=== PATIENT | male | born 1960 | race Two or more races ===

== ENCOUNTER 2016-06-10 07:13 | Emergency (ER) | payer OTHER ==
[2016-06-10] MEDS ORDERED: predniSONE TAB* 20 MG PO ONE (07:33)
--- NOTE | 2016-06-10 08:09 | RAD ---
INDICATION: Right facial paralysis COMPARISON: None TECHNIQUE: Noncontrast axial source images were acquired from the skull base to the vertex. FINDINGS: Ventricles/sulci: The ventricles and cisterns are normal in size and configuration for age. Brain parenchyma: There is no focal parenchymal finding, evidence of intracranial mass, or intracranial mass effect. Intracranial hemorrhage:None. Extra-axial spaces: There are no abnormal extra axial fluid collections or evidence of extra-axial mass. Calvarium: There is no calvarial fracture or other calvarial abnormality. Scalp: There is no evidence of scalp or extracalvarial soft tissue abnormality. Paranasal sinuses/mastoid: There are findings of acute and chronic sinusitis with right ethmoid sinus mucosal thickening and an air-fluid level in the maxillary antrum on the right. Other: None. IMPRESSION: No acute findings. Acute and chronic sinusitis
[2016-06-10] MEDS ORDERED: ValACYclovir (*) 1 GM TAB PO SCH (09:00)
[2016-06-10 09:46] VITALS: BP 137/81
--- NOTE | 2016-06-10 15:46 | ED ---
Pratima, DoctorLisa, scribed for Yayo Singer MD on 06/10/16 at 0758 . Neurological HPI - HPI Summary HPI Summary: 55 year old male arrived to [facility] c/o right side face numbness and paralysis. He first noticed his right cheek was numb beginning last night at 22:00. Patient reports being unable to close his right eye and smile, but denies any fever, HO, diaphoresis, or arm/leg numbness. He reports feeling a slight radiating pain behind his right ear three days ago, but the pain resolved spontaneously. He has been recovering from the flu, and taking Abx (Augmentin) for approximately 4 days; his symptoms are now resolved. - History of Current Complaint Chief Complaint: EDGeneral Stated Complaint: STROKE LIKE SYMPTOMS Time Seen by Provider: 06/10/16 07:19 Hx Obtained From: Patient Onset/Duration: Gradual Onset, Started days ago, Still Present Timing: Constant Onset Severity: Moderate Current Severity: Moderate Neurological Deficit Location: RUE, RLE Pain Intensity: 0 Pain Scale Used: 0-10 Numeric Associated Signs and Symptoms: Positive: Numbness. Negative: Headache, Loss of Consciousness, Diaphoresis, Fever - Allergy/Home Medications Allergies/Adverse Reactions: Allergies Allergy/AdvReac Type Severity Reaction Status Date / Time No Known Allergies Allergy Verified 02/06/13 14:55 PMH/Surg Hx/FS Hx/Imm Hx Endocrine/Hematology History: Denies: Hx Diabetes Cardiovascular History: Denies: Hx Congestive Heart Failure, Hx Hypertension Respiratory History: Reports: Other Respiratory Problems/Disorders - present dx pneumnia Musculoskeletal History: Denies: Hx Scoliosis Neurological History: Denies: Hx Headaches, Other Neuro Impairments/Disorders Infectious Disease History: No Infectious Disease History: Denies: Traveled Outside the [place] in Last 30 Days - Family History Known Family History: Negative: Cardiac Disease, Hypertension, Diabetes - Social History Alcohol Use: Occasionally Substance Use Type: Reports: None Smoking Status (MU): Never Smoked Tobacco Review of Systems Negative: Fever, Chills, Skin Diaphoresis Positive: Weakness - right facial weakness, Numbness - right facial numbness All Other Systems Reviewed And Are Negative: Yes Physical Exam Triage Information Reviewed: Yes Vital Signs On Initial Exam: Initial Vitals Temp Pulse Resp BP Pulse Ox 96.8 F 90 18 145/79 99 06/10/16 07:19 06/10/16 07:19 06/10/16 07:19 06/10/16 07:19 06/10/16 07:19 Vital Signs Reviewed: Yes Appearance: Positive: Well-Appearing, No Pain Distress Skin: Positive: Warm, Skin Color Reflects Adequate Perfusion, Dry Head/Face: Positive: Normal Head/Face Inspection Eyes: Positive: Normal ENT: Positive: Normal ENT inspection Neck: Positive: Supple, Nontender Respiratory/Lung Sounds: Positive: Clear to Auscultation, Breath Sounds Present Cardiovascular: Positive: RRR Abdomen Description: Positive: Nontender, Soft Bowel Sounds: Positive: Present Musculoskeletal: Positive: Normal Neurological: Positive: Alert, Oriented to Person Place, Time, Reflexes Intact, Finger to Nose. Negative: Normal - right facial weakness with forehead included , Sensory/Motor Intact - right facial weakness with forehead included, Abnormal Gait, Facial Symmetry Diagnostics - Vital Signs Vital Signs Temp Pulse Resp BP Pulse Ox 06/10/16 07:26 97.3 F 06/10/16 07:19 96.8 F 90 18 145/79 99 - Laboratory Lab Statement: Any lab studies that have been ordered have been reviewed, and results considered in the medical decision making process. - CT Brain CT CT Interpretation Completed By: Radiologist - IMPRESSION: No acute findings. Acute and chronic sinusitis Course/Dx - Course Course Of Treatment: Mr. Perry presented with classical [place] Palsy C/O and was treated accordingly. He was concerned that the augmentin that he had been recently started on for sinusitis was responsible although it had improved all of his other symptoms. I could not find that in my research but I switched his antibiotic anyway. - Diagnoses Provider Diagnoses: Burger's palsy Discharge - Discharge Plan Condition: Stable Disposition: HOME Prescriptions: DOXYcycline CAP(*) [DOXYcycline 100MG CAP(*)] 100 mg PO BID #10 cap ValACYclovir (*) [Valtrex 1 GM(*)] 1 gm PO TID #21 tab predniSONE TAB* [Deltasone TAB*] 60 mg PO DAILY 7 Days predniSONE TAB* [Deltasone TAB*] 60 mg PO DAILY #21 tab Patient Education Materials: [place] Palsy (ED) Referrals: Erich Kelly MD [Primary Care Provider] - Additional Instructions: Follow up with Dr. Kelly The documentation as recorded by the muraliibDoctor zambrano Tahera accurately reflects the service I personally performed and the decisions made by me, Yayo Singer MD.
== END 2016-06-10 09:45 | disposition home or self-care (01) ==
LOC: ED 07:13
DX: G51.0 Bell's palsy (principal); R53.1 Weakness; R20.0 Anesthesia of skin; J01.90 Acute sinusitis, unspecified; J32.9 Chronic sinusitis, unspecified
CPT/HCPCS: 70450; 99282; A9270-GY; J7512